=== PATIENT | female | born 1955 | race American Indian/Alaskan Native ===

== ENCOUNTER → 2017-11-18 | Outpatient (CLI) | payer OTHER ==
[~2017-11-18] MED LIST: ALBU90OI INH; AZIT250 PO; BUDE32NIS; CALCAVITD PO; CALCNI; CALGLU500; CEPH500 PO; CIPR500 PO; CODACE30; CODACE30 PO; CODACE60; CRUTCH3 USE; CRUTCH4 USE; CYCL10; CYCL10 PO; DIAZ5 PO; DOCU100 PO; ESOM20; FLUO20 PO; HYDACE5; HYDACE5 PO; IBUP400 PO; IBUP600 PO; IBUP800 PO; LEVFLO500 PO; LEVOTHYROXINE; LEVSOD100; LEVSOD50 PO; LEVSOD75 PO; LEVSOD88; LOPE2C PO; MECL12.5 PO; MECL25 PO; METO50ER PO; MOM; MULVITA; MULVITMINF PO; NAPR500 PO; NAPR550 PO; NITR100CA PO; OFLO.3OTSO AU; OXYACE5T PO; PROACE100 PO; Percocet 5-3251 EACH PO; Prednisone20 MG PO; RALO60; ROFE25; RXHYDACE PO; RXPROACE PO; SALS500; STOOL SOFTENER PRN; SULTRIDS PO; TRAM50 PO; Ultram50 MG PO; [UNRECOGNIZED DRUG - CODE]; [UNRECOGNIZED DRUG - REMARK]
== END | disposition home or self-care (01) ==
LOC: LAB SHORT 15:33 → LAB SRC 15:33
DX: N30.00 Acute cystitis without hematuria (principal)
CPT/HCPCS: 87077; 87086; 87186